=== PATIENT | male | born 1980 | race Hispanic/Latino ===

== ENCOUNTER → 2023-09-25 | Outpatient (CLI) | payer BC ==
[~2023-09-25] MED LIST: GADOTERATE MEGLUMINE 10 MMOL/20 ML VIAL IV ONE
== END | disposition home or self-care (01) ==
LOC: RAH 13:58
PROVIDERS: ATTEND Internal Medicine
DX: E29.1 Testicular hypofunction (principal)
CPT/HCPCS: 70553; A9575

== ENCOUNTER → 2023-12-25 | Outpatient (CLI) | payer BC ==
[2023-12-25 11:45] LABS: BASOPHILS # (AUTO) 0.02 K/uL (0.00-0.20); BASOPHILS % (AUTO) 0.3 % (0.0-5.0); EOSINOPHILS # (AUTO) 0.05 K/uL (0.00-0.70); EOSINOPHILS % (AUTO) 0.7 % (0.0-8.0); HEMATOCRIT 50.5 % (42-54); IMMATURE GRANULOCYTE ABSOLUTE 0.04 K/uL (0-1); LYMPHOCYTES # (AUTO) 2.1 K/uL (1.0-4.8); LYMPHOCYTES % (AUTO) 30.7 % (21.0-51.0); MEAN CORPUSCULAR HEMOGLOBIN 27.2 pg (27.0-33.0); MEAN CORPUSCULAR HGB CONC 32.5 g/dL (32.0-36.0); MEAN CORPUSCULAR VOLUME 83.7 fL (79-99); MONOCYTES # (AUTO) 0.5 K/uL (0.1-1.0); MONOCYTES % (AUTO) 7.7 % (3.0-13.0); NEUTROPHILS # (AUTO) 4.1 K/uL (1.8-7.7); PLATELET COUNT (AUTO) 214 K/uL (130-400); RED BLOOD CELL COUNT(AUTO) 6.03 MIL/uL (4.50-6.20); RED CELL DISTRIBUTION WIDTH 13.5 % (11.0-15.5); WHITE BLOOD COUNT (AUTO) 6.9 K/uL (4.8-10.8)
[2023-12-25 11:54] LABS: HEMOGLOBIN A1C 7.2 % (4.0-6.0)
[2023-12-25 11:59] LABS: % IRON SATURATION 14.3 % (30-44)
[2023-12-25 12:23] LABS: ALBUMIN 3.6 g/dL (3.5-5.0); BILIRUBIN,TOTAL 0.5 mg/dL (0.2-1.0); CREATININE 1.1 mg/dL (0.5-1.3); POTASSIUM 4.3 mmol/L (3.5-5.1); T4 (THYROXINE) 6.9 ug/dL (4.7-13.3); THYROID STIMULATING HORMONE 2.4 uIU/mL (0.36-3.74); TOTAL PROTEIN, SERUM 7.2 g/dL (6.0-8.3)
== END | disposition home or self-care (01) ==
LOC: LAB 10:45
PROVIDERS: ATTEND Surgery
DX: E66.01 Morbid (severe) obesity due to excess calories (principal); E11.9 Type 2 diabetes mellitus without complications; I10 Essential (primary) hypertension; M19.91 Primary osteoarthritis, unspecified site; K21.9 Gastro-esophageal reflux disease without esophagitis; E78.00 Pure hypercholesterolemia, unspecified; G47.33 Obstructive sleep apnea (adult) (pediatric); Z68.44 Body mass index [BMI] 60.0-69.9, adult
CPT/HCPCS: 36415; 80053; 80061; 82306; 82607; 82746; 83036; 83540; 83550; 83735; 84207; 84425; 84436; 84443; 84446; 84481; 84590; 84630; 85025

== ENCOUNTER → 2023-12-29 | Outpatient (CLI) | payer BC | END | disposition home or self-care (01) | LOC: LAB 08:19 | PROVIDERS: ATTEND Surgery | DX: I45.10 Unspecified right bundle-branch block (principal); R63.4 Abnormal weight loss; E11.9 Type 2 diabetes mellitus without complications; I10 Essential (primary) hypertension | CPT/HCPCS: 71046; 93005 ==

== ENCOUNTER → 2024-01-14 | Outpatient (CLI) | payer OTHER | END | disposition home or self-care (01) | LOC: DTH 08:40 | PROVIDERS: ATTEND Surgery | DX: E66.01 Morbid (severe) obesity due to excess calories (principal); I10 Essential (primary) hypertension; K21.9 Gastro-esophageal reflux disease without esophagitis; E11.9 Type 2 diabetes mellitus without complications; E78.00 Pure hypercholesterolemia, unspecified; M19.90 Unspecified osteoarthritis, unspecified site; Z68.44 Body mass index [BMI] 60.0-69.9, adult; Z71.3 Dietary counseling and surveillance | CPT/HCPCS: 97803 ==

== ENCOUNTER 2024-02-25 07:53 | Day surgery (SDC) | payer BC ==
[~2024-02-25] VITALS: Ht 175.3 cm; Wt 176.0 kg
[2024-02-25] VITALS (12 sets, daily range): BP systolic 131–155; BP diastolic 77–105; PULSE 72–104; RESP 16–17; TEMP 97.3–98.2
[~2024-02-25 07:53] MED LIST changes: +EMPA25TA PO; -GADOTERATE MEGLUMINE 10 MMOL/20 ML VIAL IV ONE; +LOSA100T59 PO
[2024-02-25] MEDS ORDERED: proPOFol 10 MG/ML 20ML VIAL IV ONE (08:22)
[2024-02-25] MEDS ORDERED: ketaMINE 50MG/ML SYRINGE 50 MG/ML DISP.SYRIN ONE (08:29)
[2024-02-25] MEDS: 0.9%NACL 1000ML 1,000 ML IV ONE (08:32)
== END 2024-02-25 10:00 | disposition home or self-care (01) ==
LOC: DAH 07:53 → ENDO 07:53
PROVIDERS: ATTEND Surgery
DX: K21.00 Gastro-esophageal reflux disease with esophagitis, without bleeding (principal); K31.89 Other diseases of stomach and duodenum; K44.9 Diaphragmatic hernia without obstruction or gangrene; G47.33 Obstructive sleep apnea (adult) (pediatric); E66.01 Morbid (severe) obesity due to excess calories; E11.9 Type 2 diabetes mellitus without complications; I10 Essential (primary) hypertension; Z80.8 Family history of malignant neoplasm of other organs or systems; Z79.899 Other long term (current) drug therapy; Z68.43 Body mass index [BMI] 50.0-59.9, adult
CPT/HCPCS: 82948 ×2; 43239; J7030 ×2; J2704; J3490; A4620; A4215; A4223; A4657; A7002; A4222; A4221; A4663; A4606

== ENCOUNTER 2024-03-23 11:00 | Observation (INO) | payer BC ==
[~2024-03-23] VITALS: Ht 175.3 cm; Wt 171.8 kg
[2024-03-23 12:24] VITALS: BP 155/93; PULSE 82; RESP 18; TEMP 98.5
[2024-03-23 12:29] LABS: BASOPHILS # (AUTO) 0.01 K/uL (0.00-0.20); BASOPHILS % (AUTO) 0.1 % (0.0-5.0); EOSINOPHILS # (AUTO) 0.08 K/uL (0.00-0.70); HEMATOCRIT 51.9 % (42-54); IMMATURE GRANULOCYTE ABSOLUTE 0.02 K/uL (0-1); LYMPHOCYTES # (AUTO) 1.6 K/uL (1.0-4.8); LYMPHOCYTES % (AUTO) 19.8 % (21.0-51.0); MEAN CORPUSCULAR HEMOGLOBIN 26.7 pg (27.0-33.0); MEAN CORPUSCULAR HGB CONC 32.6 g/dL (32.0-36.0); MEAN CORPUSCULAR VOLUME 82.1 fL (79-99); MONOCYTES # (AUTO) 0.7 K/uL (0.1-1.0); MONOCYTES % (AUTO) 8.5 % (3.0-13.0); NEUTROPHILS # (AUTO) 5.6 K/uL (1.8-7.7); NEUTROPHILS % (AUTO) 70.3 % (40.0-77.0); PLATELET COUNT (AUTO) 204 K/uL (130-400); RED BLOOD CELL COUNT(AUTO) 6.32 MIL/uL (4.50-6.20); RED CELL DISTRIBUTION WIDTH 14.2 % (11.0-15.5)
[2024-03-23 12:41] LABS: CREATININE 1.2 mg/dL (0.5-1.3); POTASSIUM 4.3 mmol/L (3.5-5.1)
[2024-03-23 12:45] LABS: INR 1.11 (0.85-1.15); PROTHROMBIN TIME 11.9 SEC (9.6-11.6)
[2024-03-23 12:46] LABS: PARTIAL THROMBOPLASTIN TIME 29.4 SEC (26.3-35.5)
[2024-03-23] MEDS ORDERED: VITAMIN D PO (12:53)
[2024-03-23] MEDS ORDERED: MVI PO (12:53)
[2024-03-23] MEDS ORDERED: CALCIUM,MG,ZINC PO (12:53)
[2024-03-23] MEDS ORDERED: CLOM50TA PO (12:53)
[2024-03-24] VITALS (21 sets, daily range): BP systolic 126–164; BP diastolic 62–90; PULSE 60–83; RESP 14–20; TEMP 97.5–98.4; O2SAT 94–95
[2024-03-24] MEDS: ceFAZolin SODIUM 2 GM VIAL ONE (13:01)
[2024-03-24] MEDS: metRONIDazole 500MG/100ML BAG 200 ML ONE (13:01)
[2024-03-24] MEDS: ceFAZolin SODIUM 1 GM VIAL ONE (13:01)
[2024-03-24] MEDS: 0.9%NACL 1000ML 1,000 ML IV ONE (13:02)
[2024-03-24] MEDS ORDERED: BUPIvacaine/PF 0.5% 30ML VIAL ONE (17:09)
[2024-03-24] MEDS ORDERED: dexaMETHasone SOD PHOSPHATE 10MG/ML 1ML VIAL ONE (17:33)
[2024-03-24] MEDS ORDERED: LIDOCAINE PF 100MG/5ML (2%) SYRINGE 5ML ONE (17:33)
[2024-03-24] MEDS ORDERED: NEOSTIGMINE METHYLSULFATE 1MG/ML IV ONE (17:34)
[2024-03-24] MEDS ORDERED: GLYCOPYRROLATE 0.2 MG/ML 5 ML VIAL ONE (17:34)
[2024-03-24] MEDS ORDERED: MIDAZOLAM HCL 1 MG/ML 2ML VIAL ONE (17:34)
[2024-03-24] MEDS ORDERED: ondanSETRON 4MG INJ ONE ×2 (17:34→20:34)
[2024-03-24] MEDS ORDERED: SUCCINYLCHOLINE CHLORIDE 20 MG/ML 10 ML VIAL ONE (17:34)
[2024-03-24] MEDS ORDERED: FENTanyl CITRate PF 50 MCG/1 ML 5ML AMP IV ONE (17:34)
[2024-03-24] MEDS ORDERED: proPOFol 10 MG/ML 20ML VIAL IV ONE ×2 (17:34→17:35)
[2024-03-24] MEDS ORDERED: rocuRONium bROMide 10MG/1ML 5ML VL ONE ×3 (17:39→17:41)
[2024-03-24] MEDS ORDERED: ketaMINE 50MG/ML SYRINGE 50 MG/ML DISP.SYRIN ONE (17:42)
[2024-03-24] MEDS: ceFAZolin SODIUM 3 GM VIAL IVPB ONE (18:00)
[2024-03-24] MEDS: SUGAMMADEX SODIUM 200 MG/2 ML VIAL IV ONE (20:25)
[2024-03-24] MEDS: MEPERIDINE-PF 25 MG/ML SYG ONE ×2 (20:58→21:07)
[2024-03-24] MEDS ORDERED: ondanSETRON 4MG INJ IVP PRN (21:00)
[2024-03-24] MEDS: LACTATED RINGERS 1000ML 1,000 ML IV SCH (21:00)
[2024-03-24] MEDS ORDERED: ketOROlac 30MG VIAL (30MG/ML) IV PRN (21:00)
[2024-03-24] MEDS ORDERED: hydrALAZine 20MG/ML VIAL IV PRN (21:00)
[2024-03-24] MEDS ORDERED: hydroMORPHone 0.5 MG SYG (0.5MG/0.5ML) IVP PRN (21:00)
[2024-03-24] MEDS ORDERED: PROCHLORPERAZINE 10MG/2ML INJ IV PRN (21:00)
[2024-03-24] MEDS: FENTanyl CITRate PF 50 MCG/1 ML 2ML VIAL ONE (21:07)
[2024-03-24] MEDS: ondanSETRON 4MG INJ ONE (21:16)
[2024-03-25] VITALS (7 sets, daily range): BP systolic 145–167; BP diastolic 61–84; PULSE 68–88; RESP 18–20; TEMP 98–98.5; O2SAT 94–97
[2024-03-25] MEDS: HYDROcod/acetaMINOPHEN 7.5/325 MG 15 ML UDCUP PO PRN (00:50)
[2024-03-25] MEDS: ENOXAPARIN SODIUM 40 MG/0.4 ML SYRINGE SQ SCH (00:50)
[2024-03-25] MEDS: INSULIN humuLIN R 100 UNIT/ML 3ML SQ SCH (01:00)
== END 2024-03-25 11:50 | disposition home or self-care (01) ==
LOC: EDSTATUS 03-24 11:00 → INTOOBSV 03-24 11:02 → DAHIP 03-24 11:02 → OBSVTOIN 03-24 11:02 → 4AH 03-24 21:35
PROVIDERS: ADMIT Surgery; ATTEND Surgery
DX: E66.01 Morbid (severe) obesity due to excess calories (principal); G47.30 Sleep apnea, unspecified; I10 Essential (primary) hypertension; E11.9 Type 2 diabetes mellitus without complications; K44.9 Diaphragmatic hernia without obstruction or gangrene; K57.92 Diverticulitis of intestine, part unspecified, without perforation or abscess without bleeding; Z68.43 Body mass index [BMI] 50.0-59.9, adult; Z86.2 Personal history of diseases of the blood and blood-forming organs and certain disorders involving the immune mechanism
CPT/HCPCS: 80048; 85025; 85610; 85730; 86850; 86900; 86901; 36415; 93005; 43775; 82948 ×4; 88307; 96372 ×2; 97161; 97116; A6260; A4663; J7030 ×2; A4215 ×2; J0690 ×3; J3010 ×2; J1100; J0330; J3490 ×6; J2003; J2250; J2704 ×2; J2405 ×3; J2710; J0665 ×2; J2175 ×2; A4223 ×2; A4213; A4222; A4221; A4216; A4600; G0378; J1650 ×2; J1815 ×2; 43235; G8980-CI; G8983-CI

== ENCOUNTER 2024-04-30 11:49 | Emergency (ER) | payer BC ==
[~2024-04-30] VITALS: Ht 175.3 cm; Wt 157.9 kg
[~2024-04-30 11:49] MED LIST changes: +CALCIUM,MG,ZINC PO; +CLOM50TA PO; +MVI PO; +VITAMIN D PO
[2024-04-30 11:51] VITALS: TEMP 97.4
[2024-04-30] MEDS: 0.9%NACL 1000ML 1,000 ML IV ONE (12:00)
--- NOTE | 2024-04-30 12:18 | NUR ---
PENDING GFR RESULTS, IV SITE, & CONSENT FOR CT EXAM.
[2024-04-30 12:19] LABS: BASOPHILS # (AUTO) 0.04 K/uL (0.00-0.20); BASOPHILS % (AUTO) 0.6 % (0.0-5.0); EOSINOPHILS # (AUTO) 0.04 K/uL (0.00-0.70); EOSINOPHILS % (AUTO) 0.6 % (0.0-8.0); HEMATOCRIT 45.4 % (42-54); IMMATURE GRANULOCYTE ABSOLUTE 0.02 K/uL (0-1); LYMPHOCYTES # (AUTO) 1.1 K/uL (1.0-4.8); LYMPHOCYTES % (AUTO) 16.7 % (21.0-51.0); MEAN CORPUSCULAR HEMOGLOBIN 26.6 pg (27.0-33.0); MEAN CORPUSCULAR HGB CONC 32.8 g/dL (32.0-36.0); MEAN CORPUSCULAR VOLUME 81.1 fL (79-99); MONOCYTES # (AUTO) 0.6 K/uL (0.1-1.0); MONOCYTES % (AUTO) 8.8 % (3.0-13.0); NEUTROPHILS # (AUTO) 4.7 K/uL (1.8-7.7); PLATELET COUNT (AUTO) 153 K/uL (130-400); RED CELL DISTRIBUTION WIDTH 14.6 % (11.0-15.5); WHITE BLOOD COUNT (AUTO) 6.4 K/uL (4.8-10.8)
[2024-04-30] MEDS ORDERED: IOHEXOL-350 75 ML VIAL IV ONE (12:27)
[2024-04-30 12:28] LABS: CREATININE 1.1 mg/dL (0.5-1.3); POTASSIUM 3.9 mmol/L (3.5-5.1)
[2024-04-30 12:33] LABS: ALBUMIN 3.4 g/dL (3.5-5.0); BILIRUBIN,DIRECT 0.1 mg/dL (0.0-0.3); BILIRUBIN,TOTAL 0.6 mg/dL (0.2-1.0); TOTAL PROTEIN, SERUM 6.6 g/dL (6.0-8.3)
[2024-04-30 13:11] LABS: APPEARANCE,URINE CLOUDY (CLEAR); BILIRUBIN,URINE NEGATIVE (NEGATIVE); COLOR,URINE YELLOW (YELLOW); GLUCOSE, URINE (UA) NEGATIVE (NEGATIVE); KETONES,URINE 100 mg/dL (NEGATIVE); LEUKOCYTE ESTERASE ,URINE NEGATIVE Leu/uL (NEGATIVE); NITRATE,URINE NEGATIVE (NEGATIVE); OCCULT BLOOD,URINE NEGATIVE (NEGATIVE); PROTEIN,URINE 50 mg/dL (NEGATIVE)
[2024-04-30 13:12] LABS: ADD UA MICROSCOPIC YES
[2024-04-30 13:17] LABS: BACTERIA,URINE RARE /HPF (None Seen); CALCIUM OXALATE CRYSTALS,UR MOD /LPF (None Seen); MUCUS,URINE MANY LPF (None Seen); SQUAMOUS EPITHELIAL CELL,UR RARE /HPF (0-2); UNCLASSIFIED CRYSTAL 72 /HPF (None Seen)
--- NOTE | 2024-04-30 14:09 | HMCIMG ---
Exam Type: CT ABDOMEN/PELVIS W/CONTRAST Clinical Information: Abdominal Pain Comparison: None Contrast: 100 cc's Isovue 370 IV, no complications or adverse reactions CT Dose Index (CTDI): 31.60 mGy Dose Length Product (DLP): 1740.80 total mGy-cm Findings: No evidence of nephro or ureterolithiasis is found. No hydronephrosis or ureteral dilatation is seen. The lung bases are clear. The stomach is unremarkable except for postsurgical bariatric changes.. It shows no wall thickening. No gross ulceration is seen. It is not overly distended. There are no surrounding inflammatory changes. No wall lesions are identified to suggest cancer. The spleen is unremarkable. It is not enlarged. The pancreas shows normal anatomy. It is not fatty replaced. It shows no lesions. The pancreatic duct is not dilated. The gallbladder is unremarkable. It shows no cholelithiasis. The gallbladder wall is normal in thickness. There is no pericholecystic fluid. The is no acute or chronic inflammation noted. The adrenal glands are unremarkable. There is no enlargement. No lesions are noted. The liver is unremarkable. It shows no focal masses. The appendix is unremarkable. It shows no evidence of inflammation. No appendicolith is seen. The small bowel is unremarkable. There is no evidence of dilatation to suggest obstruction. No evidence of adynamic ileus is seen. There is no small bowel wall thickening to suggest enteritis. There is diverticulosis of the colon. There is a segment of sigmoid colon diffuse wall thickening which may represent acute diverticulitis versus nonspecific colitis. Follow-up is advised to rule out underlying persistent lesions which could indicate neoplastic disease. The urinary bladder is unremarkable. There is no wall thickening to suggest tumor or inflammation. There are no intraluminal calculi. There are no diverticula. There is no evidence of chronic bladder outlet obstruction. There is no evidence of urinary bladder distention to suggest urinary retention. The other pelvic structures are unremarkable. The bony and vascular structures are unremarkable for the patient's age. IMPRESSION: There is diverticulosis of the colon. There is a segment of sigmoid colon diffuse wall thickening which may represent acute diverticulitis versus nonspecific colitis. Follow-up is advised to rule out underlying persistent lesions which could indicate neoplastic disease. This study was performed using dose reduction techniques to include automated exposure control and/or adjustment of the mA and/or kV according to patient size.
[2024-04-30 14:21] VITALS: BP 133/66; PULSE 60; RESP 17; O2SAT 96
[2024-04-30] MEDS ORDERED: HYDR-4060 PO (14:24)
[2024-04-30] MEDS ORDERED: AMOX1TAB16 PO (14:24)
--- NOTE | 2024-04-30 14:27 | ERN ---
General Chief Complaint: Abdominal Pain Stated Complaint: ABD PAIN Time Seen by MD: 11:51 History of Present Illness Initial Comments 44-year-old male presents for generalized abdominal discomfort and left-sided abdominal discomfort beginning yesterday. He reports nausea, no vomiting. He does report some significant cramping and difficult stool. No constipation, no blood in the stool, no loose stool. He does report some left lower abdominal tenderness. There is some general radiation. No fevers. Of note, he did have a gastric sleeve about six weeks ago. He has been in his normal state of health otherwise. He has lost about 50 lb. Allergies: Coded Allergies: No Known Drug Allergies (Unverified Allergy, Unknown, 02/25/24) Home Meds Reported Medications [Vitamin D] No Conflict Check, 1 TAB PO DAILY 03/23/24 [Calcium,Mg,Zinc] No Conflict Check, 1 TAB PO DAILY 03/23/24 [Mvi] No Conflict Check, 1 TAB PO DAILY 03/23/24 Clomiphene Citrate (Clomid) 50 Mg Tablet, 50 MG PO MWF, TAB 03/23/24 Empagliflozin (Jardiance) 25 Mg Tablet, 25 MG PO HS, TAB 02/24/24 Losartan Potassium (Losartan Potassium) 100 Mg Tablet, 100 MG PO HS, TAB 02/24/24 Past Medical History Past Medical History: Diabetes-Type II, Diverticulitis, Hypertension Past Surgical History: Appendectomy, Other Surgical History Other: GASTRIC SLEEVE, PROSTATE SX ROS Dictation CONSTITUTIONAL: No chills, no fever, no weakness, no diaphoresis, no malaise. HEAD/FACE: No signs of trauma. EENT: No eye pain, no blurred vision, no tearing, no double vision, no ear pain, no ear discharge, no nose pain, no nasal congestion, no throat pain, no throat swelling, no mouth pain. RESPIRATORY: No cough, no orthopnea, no SOB, no stridor, no wheezing. CARDIOVASCULAR: No chest pain, no edema, no palpitations, no syncope. GASTROINTESTINAL/ABDOMINAL: Left-sided abdominal pain GENITOURINARY: No abnormal discharge, no dysuria, no frequent urination, no he maturia. No complaints of pain in the genitals. MUSCULOSKELETAL: No back pain, no gout, no joint pain, no joint swelling, no m uscle pain, no muscle stiffness, no neck pain. INTEGUMENTARY: No change in color, no change in hair/nails, no dryness, no lesi on, no lumps, no rash. NEUROLOGICAL/PSYCH: No anxiety, not depressed, no emotional problem, no headache, no numbness, no pre-existing deficit, no history of seizures, no tremors, no weakness. HEMATOLOGIC/LYMPHATIC: Not anemic, no history of blood clots, no apparent bleeding, no bruising, glands not swollen. All Systems Negative, Except as Noted. Physical Exam Physical Exam Dictation VITAL SIGNS: Reviewed. GENERAL APPEARANCE: Alert, oriented x3, no acute distress, obese. HEAD AND FACE: Non-traumatic. EYES: PERRL, pink conjunctivas, eyelid no trauma, anterior chamber clear. EARS: Pinnas intact and no signs of trauma or erythema. Ear canals clear and no discharge. TMs no erythema. NOSE: No discharge, no bleeding. OROPHARYNX: Mouth normal, teeth no caries, tongue pink. Pharynx clear, no erythema. Tonsils no exudates, no abscesses noted. Mucous membrane moist. NECK: Supple, non-tender, no thyromegaly, no masses, no JVD, no bruits. BREAST: Deferred. CHEST: No tenderness, no crepitus, no paradoxical movement, no retractions. LUNGS: Clear, well-ventilated, symmetric, no rales, no wheezing, no rhonchi, no stridor, good breath sounds bilaterally. HEART: Regular rate, regular rhythm, no murmur, no gallops. VASCULAR: No peripheral edema. ABDOMEN: Soft, positive bowel sounds, nondistended, no guarding, nontender, no rebound, no masses no hepatomegaly, no splenomegaly, no Johnson's sign, no hernias. RECTAL: Deferred. GENITAL: Deferred. NEUROLOGICAL: Normal speech, gross motor function intact, gross sensory function intact. MUSCULOSKELETAL: Neck nontender, full range of motion, back nontender, full range of motion. EXTREMITIES: Nontender, full range of motion. SKIN: Color pink, dry, no turgor, no rash, no lacerations, no abrasions, no contusions. LYMPHATICS: Deferred. Results Laboratory and Microbiology Lab and Micro Result Laboratory Tests Test 04/30/24 12:08 04/30/24 12:55 White Blood Count 6.4 K/uL (4.8-10.8) Red Blood Count 5.60 MIL/uL (4.50-6.20) Hemoglobin 14.9 g/dL (14.0-18.0) Hematocrit 45.4 % (42-54) Mean Corpuscular Volume 81.1 fL (79-99) Mean Corpuscular Hemoglobin 26.6 pg (27.0-33.0) L Mean Corpuscular Hemoglobin Concent 32.8 g/dL (32.0-36.0) Red Cell Distribution Width 14.6 % (11.0-15.5) Platelet Count 153 K/uL (130-400) Mean Platelet Volume 12.4 fL (7.5-10.5) H Immature Granulocyte % (Auto) 0.3 % (0-1) Neutrophils (%) (Auto) 73.0 % (40.0-77.0) Lymphocytes (%) (Auto) 16.7 % (21.0-51.0) L Monocytes (%) (Auto) 8.8 % (3.0-13.0) Eosinophils (%) (Auto) 0.6 % (0.0-8.0) Basophils (%) (Auto) 0.6 % (0.0-5.0) Neutrophils # (Auto) 4.7 K/uL (1.8-7.7) Lymphocytes # (Auto) 1.1 K/uL (1.0-4.8) Monocytes # (Auto) 0.6 K/uL (0.1-1.0) Eosinophils # (Auto) 0.04 K/uL (0.00-0.70) Basophils # (Auto) 0.04 K/uL (0.00-0.20) Absolute Immature Granulocyte (auto 0.02 K/uL (0-1) Nucleated Red Blood Cells 0.0 % (0.0-0.19) Sodium Level 141 mmol/L (136-145) Potassium Level 3.9 mmol/L (3.5-5.1) Chloride Level 105 mmol/L (101-111) Carbon Dioxide Level 30 mmol/L (21-32) Blood Urea Nitrogen 14 mg/dL (7-18) Creatinine 1.1 mg/dL (0.5-1.3) Glomerular Filtration Rate Calc 86 mL/min (>90) Random Glucose 106 mg/dL (70-105) H Total Calcium 8.8 mg/dL (8.5-10.1) Total Bilirubin 0.6 mg/dL (0.2-1.0) Direct Bilirubin 0.1 mg/dL (0.0-0.3) Aspartate Amino Transf (AST/SGOT) 43 U/L (10-37) H Alanine Aminotransferase (ALT/SGPT) 130 U/L (12-78) H Alkaline Phosphatase 74 U/L (50-136) Total Creatine Kinase 128 U/L (21-232) Total Protein 6.6 g/dL (6.0-8.3) Albumin 3.4 g/dL (3.5-5.0) L Lipase 28 U/L (16-77) Urine Color YELLOW (YELLOW) Urine Appearance CLOUDY (CLEAR) H Urine pH 6.0 (5.0-8.0) Urine Specific [place] 1.038 (1.001-1.031) Urine Protein 50 mg/dL (NEGATIVE) H Urine Glucose (UA) NEGATIVE mg/dL (NEGATIVE) Urine Ketones 100 mg/dL (NEGATIVE) H Urine Occult Blood NEGATIVE (NEGATIVE) Urine Nitrate NEGATIVE (NEGATIVE) Urine Bilirubin NEGATIVE mg/dL (NEGATIVE) Urine Urobilinogen 4.0 mg/dL (0.2-1.0) H Urine Leukocyte Esterase NEGATIVE David/uL Urine RBC 2-5 /HPF (0-1) H Urine WBC 2-5 /HPF (0-1) H Urine Squamous Epithelial Cells RARE /HPF (0-2) Urine Calcium Oxalate Crystals MOD /LPF (None Seen) Urine Other Crystals (Auto) 72 /HPF (None Seen) Urine Bacteria RARE /HPF (None Seen) LINDA TERAN CC: lower abd pain, mostly L sided Historian: pateint Comorbidities: morbid obesity, DM, HTN, hypogonadism Differential diagnosis: diverticulitis, post operate complication, surgical pathology, metabolic abnormality External chart review: Operateive note from Dr Zafar Tavera, dated 03.24.24, diagnosis morbid obesity, lap gastric sleeve, omentoplasty, intraoperative EGD. No complications. Labs (independently ordered and interpreted by me): No leukocytosis or anemia. Chemistry shows normal electrolytes, liver enzymes mildly elevated ALT 130 AST 43 otherwise unremarkable. CK is normal lipase is normal. CT abdomen and pelvis with contrast per my independent interpretation shows no free air or major surgical pathology. There is definite diverticulosis. We will wait for the final read. Final read of the CT scan shows possible acute diverticulitis versus nonspecific colitis. Patient's labs are stable, currently he is actually pain-free. Since he does have a history of the diverticulitis in his symptoms are concerning for the same, we will discharge with some Augmentin. He has a good follow up as an outpatient. We will also send him some Braymer tabs and recommend diet modification. Exam Type: CT ABDOMEN/PELVIS W/CONTRAST Clinical Information: Abdominal Pain Comparison: None Contrast: 100 cc's Isovue 370 IV, no complications or adverse reactions CT Dose Index (CTDI): 31.60 mGy Dose Length Product (DLP): 1740.80 total mGy-cm Findings: No evidence of nephro or ureterolithiasis is found. No hydronephrosis or ureteral dilatation is seen. The lung bases are clear. The stomach is unremarkable except for postsurgical bariatric changes.. It shows no wall thickening. No gross ulceration is seen. It is not overly distended. There are no surrounding inflammatory changes. No wall lesions are identified to suggest cancer. The spleen is unremarkable. It is not enlarged. The pancreas shows normal anatomy. It is not fatty replaced. It shows no lesions. The pancreatic duct is not dilated. The gallbladder is unremarkable. It shows no cholelithiasis. The gallbladder wall is normal in thickness. There is no pericholecystic fluid. The is no acute or chronic inflammation noted. The adrenal glands are unremarkable. There is no enlargement. No lesions are noted. The liver is unremarkable. It shows no focal masses. The appendix is unremarkable. It shows no evidence of inflammation. No appendicolith is seen. The small bowel is unremarkable. There is no evidence of dilatation to suggest obstruction. No evidence of adynamic ileus is seen. There is no small bowel wall thickening to suggest enteritis. There is diverticulosis of the colon. There is a segment of sigmoid colon diffuse wall thickening which may represent acute diverticulitis versus nonspecific colitis. Follow-up is advised to rule out underlying persistent lesions which could indicate neoplastic disease. The urinary bladder is unremarkable. There is no wall thickening to suggest tumor or inflammation. There are no intraluminal calculi. There are no diverticula. There is no evidence of chronic bladder outlet obstruction. There is no evidence of urinary bladder distention to suggest urinary retention. The other pelvic structures are unremarkable. The bony and vascular structures are unremarkable for the patient's age. IMPRESSION: There is diverticulosis of the colon. There is a segment of sigmoid colon diffuse wall thickening which may represent acute diverticulitis versus nonspecific colitis. Follow-up is advised to rule out underlying persistent lesions which could indicate neoplastic disease. This study was performed using dose reduction techniques to include automated exposure control and/or adjustment of the mA and/or kV according to patient size. ED Course Orders Procedure Category Date Status Time Cbc With Differential LAB 04/30/24 Complete 11:55 Urinalysis Profile LAB 04/30/24 Complete 11:55 Ct Abdomen/Pelvis CT 04/30/24 Resulted W/Contrast 11:55 0.9%Nacl 1000ml (Ns PHA 04/30/24 Complete 1000ml) 12:00 Creatine Kinase, Total LAB 04/30/24 Complete 11:55 Lipase LAB 04/30/24 Complete 11:55 Basic Metabolic Panel LAB 04/30/24 Complete 11:55 Hepatic Function Panel LAB 04/30/24 Complete 11:55 Iohexol (Omnipaque) PHA 04/30/24 Complete 12:27 Current Medications Medications (Trade) Dose Ordered Sig/Jeremie Route PRN Reason Start Time Stop Time Status Last Admin Dose Admin Iohexol (Omnipaque) 75 ml STK-MED ONCE IV 04/30/24 12:27 04/30/24 12:27 DC Sodium Chloride 1,000 ml @ 0 mls/hr ONCE ONCE IV 04/30/24 12:00 04/30/24 14:03 DC Vital Signs Date Time Temp Pulse Resp B/P (MAP) Pulse Ox O2 Delivery O2 Flow Rate FiO2 04/30/24 13:04 58 17 136/71 96 Room Air* 0 21 04/30/24 11:51 97.3 56 18 147/75 97 Room Air DX & DISP Disposition: Discharge Departure Impression: Primary Impression: Diverticulitis large intestine Condition: Stable Scripts Hydrocodone/Acetaminophen (Hydrocodon-Acetaminophen 5-325) 5 Mg-325 Mg Tablet 1 TAB PO TIDP PRN for pain for 5 Days, #15 TAB 0 Refills Prov: SG BLAS DO 04/30/24 Amoxicillin/Potassium Clav (Amox Tr-K Clv 875-125 mg Tab) 875 Mg-125 Mg Tablet 1 TAB PO BID for 10 Days, #20 TAB 0 Refills Prov: SG BLAS DO 04/30/24 Referrals: SHERLYN ANGEL MD (PCP) SG BLAS DO Apr 30, 2024 14:27
== END 2024-04-30 15:19 | disposition home or self-care (01) ==
LOC: EDH 11:49
DX: K57.32 Diverticulitis of large intestine without perforation or abscess without bleeding (principal); E11.9 Type 2 diabetes mellitus without complications; E66.01 Morbid (severe) obesity due to excess calories; I10 Essential (primary) hypertension; Z79.899 Other long term (current) drug therapy; Z90.49 Acquired absence of other specified parts of digestive tract; Z98.890 Other specified postprocedural states
CPT/HCPCS: 99284; 74177; 96360; 82550; 80076; 80048; 83690; 85025; 81001; 36415; J7030; Q9967